=== PATIENT | female | born 1945 | race Caucasian/White ===

== ENCOUNTER 2020-07-16 18:01 | Emergency (ER) | payer OTHER ==
[~2020-07-16] VITALS: Ht 157.5 cm; Wt 105.2 kg
[2020-07-16 18:37] VITALS: BP 159/54; Ht 157.5 cm; Wt 105.2 kg
== END 2020-07-16 20:51 | disposition home or self-care (01) ==
LOC: ED 18:01
DX: S92.351A Displaced fracture of fifth metatarsal bone, right foot, initial encounter for closed fracture (principal); E78.00 Pure hypercholesterolemia, unspecified; I10 Essential (primary) hypertension; M79.7 Fibromyalgia; Z90.49 Acquired absence of other specified parts of digestive tract; Z98.51 Tubal ligation status; X50.1XXA Overexertion from prolonged static or awkward postures, initial encounter; Y93.89 Activity, other specified; Y92.89 Other specified places as the place of occurrence of the external cause; Y99.8 Other external cause status